=== PATIENT | female | born 1995 | race Caucasian/White ===

== ENCOUNTER 2020-11-04 23:26 | Emergency (ER) | payer MEDICAID, OTHER ==
[~2020-11-04] VITALS: Ht 162.6 cm; Wt 78.0 kg
--- NOTE | 2020-11-04 23:52 | ED GU-Female ---
General Chief Complaint: Abdominal/GI Problems Stated Complaint: STOMACH PAIN Nursing Triage Note: PT AMBULATE TO ROOM FS02 WITH C/O RIGHT SIDE ABD PAIN STARTING AT 1630 TODAY. PT REPORTS N/V. PT STATES THAT SHE IS "ABOUT TO START MY PERIOD AND THE PAIN STARTED DOWN THERE". PT STATES THAT THE PAIN STARTED IN HER VAGINA AND MOVED TO HER RIGHT ABD AT 2230 TONIGHT. PT APPEARS ANXIOUS AND TEARFUL. Source: patient Exam Limitations: no limitations History of Present Illness Date Seen by Provider: Nov 04, 2020 Time Seen by Provider: 23:40 Initial Comments 25-year-old female presents with right lower pelvic abdominal pain. Pain began in her vagina after having sex and then afterwards was radiating to her right lower abdomen as stated. States she is expecting to have her period any day now, but not have any vaginal bleeding or discharge. Has had similar episodes in the past, not as severe. She had nausea and vomiting. Allergies and Home Medications Allergies Coded Allergies: No Known Drug Allergies (Unverified , 11/04/20) Home Medications Hydrocodone/Acetaminophen 1 Each Tablet, 1 EACH PO Q4H Prescribed by: CELY SHAH on 11/05/20114 Ibuprofen 800 Mg Tablet, 800 MG PO Q8H PRN for PAIN Prescribed by: CELY SHAH on 11/05/20113 Ondansetron 4 Mg Tab.rapdis, 4 MG PO TID Prescribed by: CELY SHAH on 11/05/20113 Patient Home Medication List Home Medication List Reviewed: Yes Review of Systems Review of Systems Constitutional: No chills, No fever, No weakness Respiratory: No cough, No short of breath Cardiovascular: No chest pain, No edema, No palpitations, No syncope Gastrointestinal: RLQ, abdominal pain; No constipation, No diarrhea; nausea, vomiting Genitourinary: denies dysuria, denies frequency, denies hematuria; other (vaginal pain) Musculoskeletal: No back pain, No joint pain Skin: No change in color, No rash Past Pwodnht-Jhbsqd-Ujxhmo Hx Patient Social History Tobacco Use?: No Smoking Status: Never a Smoker Substance use?: Yes Substance type: Marijuana Substance frequency: Daily Alcohol Use?: No Physical Exam Vital Signs Vital Signs - First Documented 11/04/20 23:37 Temp 36.1 Pulse 87 Resp 19 B/P (MAP) 128/98 (108) O2 Delivery Room Air Capillary Refill : Less Than 3 Seconds Height, Weight, BMI Height: '" Weight: lbs. oz. kg; 29.00 BMI Method: General Appearance: WD/WN Cardiovascular: regular rate, rhythm, no JVD Respiratory: chest non-tender, lungs clear, normal breath sounds Gastrointestinal: normal bowel sounds, soft; No no organomegaly, No no pulsatile mass, No guarding, No rebound; tenderness (RLQ); No hernia, No mass Back: normal inspection, no CVA tenderness Neurologic/Psychiatric: alert, oriented x 3, other (anxious and hyperventilating) Skin: normal color, warm/dry Progress/Results/Core Measures Suspected Sepsis SIRS Temperature: Pulse: 87 Respiratory Rate: 19 Laboratory Tests 11/04/20 23:58: White Blood Count 10.7 Blood Pressure 128 /98 Mean: 108 Laboratory Tests 11/04/20 23:58: Creatinine 0.95, Platelet Count 327, Total Bilirubin 0.4 Results/Orders Lab Results Laboratory Tests Test 11/04/20 23:47 11/04/20 23:58 Range/Units Urine Color YELLOW Urine Clarity TURBID Urine pH 7.5 5-9 Urine Specific [place] 1.020 1.016-1.022 Urine Protein NEGATIVE NEGATIVE Urine Glucose (UA) NEGATIVE NEGATIVE Urine Ketones TRACE H NEGATIVE Urine Nitrite NEGATIVE NEGATIVE Urine Bilirubin NEGATIVE NEGATIVE Urine Urobilinogen 1.0 < = 1.0 MG/DL Urine Leukocyte Esterase NEGATIVE NEGATIVE Urine RBC (Auto) 2+ H NEGATIVE Urine RBC 10-25 H /HPF Urine WBC RARE /HPF Urine Squamous Epithelial Cells 2-5 /HPF Urine Crystals PRESENT H /LPF Urine Amorphous Sediment LARGE LETTY PHOSPHATE H /LPF Urine Bacteria NEGATIVE /HPF Urine Casts NONE /LPF Urine Mucus LARGE H /LPF Urine Other RARE SPERM /HPF Urine Culture Indicated NO Urine Test NEGATIVE NEGATIVE White Blood Count 10.7 4.3-11.0 10^3/uL Red Blood Count 4.63 3.80-5.11 10^6/uL Hemoglobin 13.2 11.5-16.0 g/dL Hematocrit 38 35-52 % Mean Corpuscular Volume 83 80-99 fL Mean Corpuscular Hemoglobin 29 25-34 pg Mean Corpuscular Hemoglobin Concent 35 32-36 g/dL Red Cell Distribution Width 12.6 10.0-14.5 % Platelet Count 327 130-400 10^3/uL Mean Platelet Volume 9.6 9.0-12.2 fL Immature Granulocyte % (Auto) 0 % Neutrophils (%) (Auto) 56 42-75 % Lymphocytes (%) (Auto) 37 12-44 % Monocytes (%) (Auto) 6 0-12 % Eosinophils (%) (Auto) 1 0-10 % Basophils (%) (Auto) 1 0-10 % Neutrophils # (Auto) 6.0 1.8-7.8 X 10^3 Lymphocytes # (Auto) 3.9 1.0-4.0 X 10^3 Monocytes # (Auto) 0.6 0.0-1.0 X 10^3 Eosinophils # (Auto) 0.1 0.0-0.3 10^3/uL Basophils # (Auto) 0.1 0.0-0.1 10^3/uL Immature Granulocyte # (Auto) 0.0 0.0-0.1 10^3/uL Sodium Level 141 135-145 MMOL/L Potassium Level 3.0 L 3.6-5.0 MMOL/L Chloride Level 104 98-107 MMOL/L Carbon Dioxide Level 21 21-32 MMOL/L Anion Gap 16 H 5-14 MMOL/L Blood Urea Nitrogen 15 7-18 MG/DL Creatinine 0.95 0.60-1.30 MG/DL Estimat Glomerular Filtration Rate 72 BUN/Creatinine Ratio 16 Glucose Level 127 H 70-105 MG/DL Calcium Level 9.6 8.5-10.1 MG/DL Corrected Calcium 9.4 8.5-10.1 MG/DL Total Bilirubin 0.4 0.1-1.0 MG/DL Aspartate Amino Transf (AST/SGOT) 11 5-34 U/L Alanine Aminotransferase (ALT/SGPT) 15 0-55 U/L Alkaline Phosphatase 78 40-136 U/L Total Protein 7.0 6.4-8.2 GM/DL Albumin 4.3 3.2-4.5 GM/DL My Orders Orders - ROVENSTCELY GONZALES DO Ed Iv/Invasive Line Start (11/04/20 23:52) Cbc With Automated Diff (11/04/20 23:52) Comprehensive Metabolic Panel (11/04/20 23:52) Urinalysis (11/04/20 23:52) Hcg,Qualitative Urine (11/04/20 23:52) Ct Abdomen/Pelvis Wo (11/05/20 00:09) Ketorolac Injection (Toradol Injection) (11/05/20 01:00) Ns Iv 1000 Ml (Sodium Chloride 0.9%) (11/05/20 01:00) Ondansetron Injection (Zofran Injectio (11/05/20 01:00) Medications Given in ED Current Medications Medications Dose Ordered Sig/Tiana Route Start Time Stop Time Status Last Admin Dose Admin Ketorolac Tromethamine 30 mg ONCE ONCE IVP 11/05/20 01:00 11/05/20 01:01 DC 11/05/20 00:57 30 MG Ondansetron HCl 4 mg ONCE ONCE IVP 11/05/20 01:00 11/05/20 01:01 DC 11/05/20 00:57 4 MG Vital Signs/I&O 11/04/20 23:37 Temp 36.1 Pulse 87 Resp 19 B/P (MAP) 128/98 (108) O2 Delivery Room Air Capillary Refill : Less Than 3 Seconds Blood Pressure Mean: 108 Diagnostic Imaging Diagonstic Imaging: CT Comments Mild R Azalea w 3mm UVJ stone Departure Impression Primary Impression: Abdominal pain Qualified Codes: R10.31 - Right lower quadrant pain Additional Impressions: Hypokalemia Renal lithiasis Disposition: HOME, SELF-CARE Condition: Improved Departure-Patient Inst. Decision time for Depature: 01:13 Referrals: LING SERRANO MD (PCP/Family) Primary Care Physician JAMES JACOBS MD Patient Instructions: Kidney Stone, Adult ED Add. Discharge Instructions: Call Dr Jacobs's office tomorrow morning to schedule a follow up appointment in 2 to 3 days if your pain has not resolved. Return to the ER sooner if you are feeling worse. All discharge instructions reviewed with patient and/or family. Voiced under standing. Scripts Ondansetron (Ondansetron Odt) 4 Mg Tab.rapdis 4 MG PO TID for Nausea, #10 TAB Prov: ROVENSTINECELY L DO 11/05/20 Ibuprofen (Ibuprofen) 800 Mg Tablet 800 MG PO Q8H PRN for PAIN, #30 TAB 0 Refills Prov: ROVENSTINECELY L DO 11/05/20 Hydrocodone/Acetaminophen (Hydrocodone-Acetamin 5-325 mg) 1 Each Tablet 1 EACH PO Q4H for Abdominal Pain, #10 TAB Prov: CELY SHAH DO 11/05/20 CELY SHAH DO Nov 04, 2020 23:52
[2020-11-05 00:02] LABS: BILIRUBIN,URINE NEGATIVE (NEGATIVE); CLARITY,URINE TURBID; COLOR,URINE YELLOW; GLUCOSE, URINE (UA) NEGATIVE (NEGATIVE); KETONES,URINE TRACE (NEGATIVE); LEUKOCYTE ESTERASE ,URINE NEGATIVE (NEGATIVE); NITRITE,URINE NEGATIVE (NEGATIVE); PH,URINE 7.5 (5-9); PROTEIN,URINE NEGATIVE (NEGATIVE)
[2020-11-05 00:14] LABS: HEMATOCRIT 38 % (35-52); HEMOGLOBIN 13.2 g/dL (11.5-16.0); MEAN CORPUSCULAR HEMOGLOBIN 29 pg (25-34); MEAN CORPUSCULAR HGB CONC 35 g/dL (32-36); MEAN CORPUSCULAR VOLUME 83 fL (80-99); WHITE BLOOD COUNT 10.7 10^3/uL (4.3-11.0)
[2020-11-05 00:15] LABS: BASOPHILS # (AUTO) 0.1 10^3/uL (0.0-0.1); BASOPHILS % (AUTO) 1 % (0-10); EOSINOPHILS # (AUTO) 0.1 10^3/uL (0.0-0.3); EOSINOPHILS % (AUTO) 1 % (0-10); LYMPHOCYTES # (AUTO) 3.9 X 10^3 (1.0-4.0); LYMPHOCYTES % (AUTO) 37 % (12-44); MEAN PLATELET VOLUME 9.6 fL (9.0-12.2); MONOCYTES # (AUTO) 0.6 X 10^3 (0.0-1.0); MONOCYTES % (AUTO) 6 % (0-12); NEUTROPHILS % (AUTO) 56 % (42-75); PLATELET COUNT 327 10^3/uL (130-400)
[2020-11-05 00:18] LABS: BACTERIA,URINE NEGATIVE /HPF; WBC,URINE RARE /HPF
[2020-11-05 00:19] LABS: AMORPHOUS SEDIMENT,UR LARGE AMOR PHOSPHATE /LPF
[2020-11-05 00:20] LABS: URINE OTHER RARE SPERM /HPF
[2020-11-05 00:41] LABS: CALCIUM 9.6 MG/DL (8.5-10.1); CREATININE SERUM 0.95 MG/DL (0.60-1.30)
[2020-11-05 00:42] LABS: ALBUMIN 4.3 GM/DL (3.2-4.5); BILIRUBIN,TOTAL 0.4 MG/DL (0.1-1.0)
[2020-11-05] MEDS ORDERED: KETOROLAC 30 MG/ML VIAL IVP ONE (01:00)
[2020-11-05] MEDS ORDERED: NS IV 1000 ML 1,000 ML IV SCH (01:00)
[2020-11-05] MEDS ORDERED: ONDANSETRON 4 MG/2 ML (SDV) Z0FRAN IVP ONE (01:00)
[2020-11-05] MEDS ORDERED: IBUP-1780 PO (01:14)
[2020-11-05] MEDS ORDERED: ACHD5005 PO (01:14)
[2020-11-05] MEDS ORDERED: ONDA4TAB11 PO (01:14)
[2020-11-05 01:23] VITALS: BP 122/79
--- NOTE | 2020-11-05 07:00 | Diagnostic Imaging Report ---
PROCEDURE: CT abdomen and pelvis without contrast. TECHNIQUE: Multiple contiguous axial images were obtained through the abdomen and pelvis without the use of intravenous contrast. Auto Exposure Controls were utilized during the CT exam to meet ALARA standards for radiation dose reduction. INDICATION: Flank and abdominal pain. FINDINGS: The heart size is normal. Lung bases are clear. The liver is normal in size without focal lesions. Gallbladder is unremarkable. There is no biliary ductal dilatation. Spleen is normal. Pancreas and adrenal glands are unremarkable. Left kidney is normal. There is moderate right hydronephrosis secondary to a 3.5 mm stone at right UVJ. Bladder is normal. Aorta is nonaneurysmal. Bowel gas pattern is nonspecific. There is no free air. There is no ascites. There are no focal inflammatory changes. Uterus is normal. There is no pelvic mass, adenopathy or free fluid. The osseous structures are unremarkable. IMPRESSION: Mild right hydronephrosis secondary to a 3.5 mm stone at the right UVJ. Dictated by: Dictated on workstation # [id number]
== END 2020-11-05 01:23 | disposition home or self-care (01) ==
LOC: ER FS 23:30
DX: E87.6 Hypokalemia (principal); N13.2 Hydronephrosis with renal and ureteral calculous obstruction
CPT/HCPCS: 36415; 74176; 80053; 81000; 84703; 85025; 96374; 96375